=== PATIENT | male | born 1985 | race Caucasian/White ===

== ENCOUNTER 2019-02-26 08:17 | Emergency (ER) | payer MEDICAID ==
[~2019-02-26] VITALS: Ht 188 cm; Wt 79.5 kg
[~2019-02-26 08:17] MED LIST: CLIN150C8 PO; IBUP-1984 PO
[2019-02-26 08:30] VITALS: BP 142/80
[2019-02-26] MEDS ORDERED: CEPH250T PO (09:10)
== END 2019-02-26 09:15 | disposition home or self-care (01) ==
LOC: ER 08:18
DX: L90.5 Scar conditions and fibrosis of skin (principal); Z98.890 Other specified postprocedural states; Z88.6 Allergy status to analgesic agent
CPT/HCPCS: 99283

== ENCOUNTER 2019-08-11 23:41 | Emergency (ER) | payer MEDICAID ==
[~2019-08-11] VITALS: Ht 188 cm; Wt 86.0 kg
[2019-08-11 23:43] VITALS: BP 133/82
[2019-08-12] MEDS ORDERED: AMOX500C2 PO (00:21)
[2019-08-12] MEDS ORDERED: HYDR-3965 PO (00:21)
== END 2019-08-12 00:49 | disposition home or self-care (01) ==
LOC: ER 23:41
DX: K08.89 Other specified disorders of teeth and supporting structures (principal); Z88.6 Allergy status to analgesic agent; Z79.899 Other long term (current) drug therapy
CPT/HCPCS: 99283

== ENCOUNTER 2020-12-03 17:55 | Emergency (ER) | payer MEDICAID ==
[~2020-12-03] VITALS: Ht 188 cm; Wt 90.9 kg
[2020-12-03 18:00] VITALS: BP 137/84
--- NOTE | 2020-12-03 18:55 | NUR ---
PT LEFT PRIOR TO BEING SEEN
== END 2020-12-04 06:38 | disposition left against medical advice (07) ==
LOC: ER 17:55
DX: R50.9 Fever, unspecified (principal); Z53.21 Procedure and treatment not carried out due to patient leaving prior to being seen by health care provider